=== PATIENT | female | born 1935 | race Caucasian/White ===

== ENCOUNTER 2020-05-07 07:04 | Emergency (ER) | payer MEDICARE ==
[~2020-05-07] VITALS: Ht 170.2 cm; Wt 73.5 kg
[~2020-05-07 07:04] MED LIST: CALCIUM 600 +1 EAC2 PO; CELEBREX100 MG PO; COQ-10100 MG PO; FISH OIL 1,0001 EAC2 PO; GLUCOSAMINE &1 EAC1 PO; HYDROCODON-ACE1 EA12 PO; HYDROXYZINE HCL25 MG PO; LEVOTHYROXINE75 MCG PO; LISINOPRIL10 MG PO; TEMAZEPAM15 MG PO; TIZANIDINE HCL4 M1 PO; TYLENOL EXTRA500 MG PO; VITAMIN C WIT1000 MG PO
--- NOTE | 2020-05-07 07:37 | Emergency Department Note ---
History of Present Illnes History of Present Illness Chief Complaint: General Medicine Complaints History of Present Illness This is a 85 year old female Chief Complaint Comment Patient in from home via EMS with complaints of numbness to her right arm and bilateral feet as well as weakness. Per EMS report, the patient called once at 0230 with the same complaint but refused to be transported to the hospital at that time. Historian: Testing Consultant/EMS Arrival Mode: [place] Telephone Switchboard Operator Required: Yes Onset (how long ago): hour(s) (6) Location: R hand Quality: numb Radiation: Reports non-radiation Severity: mild Onset quality: gradual Duration (how long): hour(s) (6) Timing of current episode: constant Progression: partially resolved Chronicity: new Context: Denies recent illness, Denies recent surgery Relieving factors: none Exacerbating factors: none Associated symptoms: Reports denies other symptoms Treatments prior to arrival: none Past Medical/Family History Physician Review I have reviewed the patient's past medical and family history. Any updates have been documented here. Past Medical History Recent Fever: No Clinical Suspicion of Infectio: No New/Unexplained Change in Ment: No Review of Systems Review of Systems Constitutional: Reports as per HPI EENTM: Reports no symptoms Cardiovascular: Reports no symptoms Respiratory: Reports no symptoms Gastrointestinal: Reports no symptoms Genitourinary: Reports no symptoms Musculoskeletal: Reports no symptoms Integumentary: Reports no symptoms Neurological: Reports as per HPI, Reports numbness (R hand, Bilateral feet), Reports other; Denies headache, Denies weakness Psychological: Reports no symptoms Endocrine: Reports no symptoms Hematological/Lymphatic: Reports no symptoms Physical Exam Related Data Allergies: Coded Allergies: No Known Allergies (Unverified , 06/24/11) Triage Vital Signs Vital Signs Date Time Temp Pulse Resp B/P (MAP) Pulse Ox O2 Delivery O2 Flow Rate FiO2 05/07/20 07:15 97.9 68 17 121/69 95 Room Air Vital signs reviewed: Yes Physical Exam CONSTITUTIONAL Constitutional: Present well-developed, Present well-nourished HENT HENT: Present normocephalic, Present atraumatic, Present oropharynx clear/moist, Present nose normal HENT L/R: Present left ext ear normal, Present right ext ear normal EYES Eyes: Reports PERRL, Reports conjunctivae normal NECK Neck: Present ROM normal PULMONARY Pulmonary: Present effort normal, Present breath sounds normal CARDIOVASCULAR Cardiovascular: Present regular rhythm, Present heart sounds normal, Present capillary refill normal, Present normal rate GASTROINTESTINAL Abdominal: Present soft, Present nontender, Present bowel sounds normal GENITOURINARY Genitourinary: Present exam deferred SKIN Skin: Present warm, Present dry MUSCULOSKELETAL Musculoskeletal: Present ROM normal NEUROLOGICAL Neurological: Present alert, Present oriented x 3, Present no gross motor or sensory deficits; Absent cranial nerve deficit, Absent sensory deficit, Absent abnormal coordination, Absent weakness PSYCHOLOGICAL Psychological: Present mood/affect normal, Present judgement normal Procedures 12 Lead ECG Interpretation ECG Interpretation : Telephone Switchboard Operator: Interpreted by ED physician Date: May 07, 2020 Rhythm: sinus rhythm Rate: normal BPM: 60 QRS axis: normal Conduction: right bundle branch block ST segments normal: Yes T waves normal: Yes Clinical Impression: non-specific ECG Assessment & Plan Medical Decision Making MDM 85-year-old female presents for right hand numbness and bilateral feet numbness. The symptoms are subjective and she retains feeling in all the extremities. No focal neurologic deficits. Cranial nerves II through XII are intact, vital signs stable, within except for limits. Initial differential includes stroke versus diabetic neuropathy versus paresthesias among others. Workup is largely unremarkable including CT head and labs. possible UTI on UA, will rx keflex. I offered admission for stroke rule out to witch patient declined. I discussed her that I cannot rule out a stroke without an MRI but she does not wish to stay in hospital for this. Given patient's improving symptoms she is appropriate for discharge. She was given aspirin and will follow up with a primary care doctor. Part of this note was dictated with Vini and is subject to recognition errors. Reassessment Reassessment time: 07:50 Reassessment Well appearing, NAD Assessment & Plan Final Impression: (1) Hand numbness (2) UTI (urinary tract infection) Depart Disposition: HOME, SELF-CARE Last Vital Signs Date Time Temp Pulse Resp B/P (MAP) Pulse Ox O2 Delivery O2 Flow Rate FiO2 05/07/20 07:15 97.9 68 17 121/69 95 Room Air Home Meds Active Scripts Cephalexin Monohydrate (KEFLEX) 500 Mg Capsule, 500 MG PO BID for 7 Days, #14 TAB 0 Refills Prov:MAGDIEL RANDHAWA MD 05/07/20 Reported Medications Acetaminophen (TYLENOL EXTRA STRENGTH) 500 Mg Tablet, 1000 MG PO BID 04/21/16 Ubidecarenone (COQ-10) 100 Mg Capsule, PO DAILY 04/21/16 Gluc 2KCL/Chondr/Mary Grace Hy/Hy Ac (GLUCOSAMINE & CHONDROITIN CAP) 1 Each Capsule, 1 TAB PO TID 04/20/16 Warren-3 Fatty Acids/Fish Oil (FISH OIL 1,000 MG CAPSULE) 1 Each Capsule, 1000 MG PO DAILY 04/20/16 Ascorbic Acid (VITAMIN C WITH ANDREW HIPS) 1,000 Mg Tablet, 1000 MG PO DAILY 04/20/16 Calcium Carbonate/Vitamin D3 (CALCIUM 600 + D3 SOFTGEL) 1 Each Capsule, 2 TAB PO BID 04/20/16 Hydroxyzine Hcl (HYDROXYZINE HCL) 25 Mg Tablet, 25 MG PO QID PRN for ITCHING, #30 TAB 04/20/16 Hydrocodone Bit/Acetaminophen (HYDROCODON-ACETAMINOPH 7.5-325) 1 Each Tablet, 1 TAB PO PRN PRN for PAIN 04/20/16 Temazepam (TEMAZEPAM) 15 Mg Capsule, 15 MG PO HS 04/20/16 Celecoxib* (CELEBREX*) 100 Mg Capsule, 200 MG PO BID, #30 CAP 04/20/16 Tizanidine Hcl (TIZANIDINE HCL) 4 Mg Capsule, 2 MG PO PRN PRN for MUSCLE SPASMS 04/20/16 Lisinopril (LISINOPRIL) 10 Mg Tablet, 20 MG PO DAILY, #30 TAB 04/20/16 Levothyroxine Sodium (LEVOTHYROXINE SODIUM) 75 Mcg Tablet, 175 MCG PO DAILY, #30 TAB 04/20/16 MAGDIEL RANDHAWA MD May 07, 2020 07:37
[2020-05-07 07:59] LABS: BASOPHILS # (AUTO) 0.1 (0.0-0.1); BASOPHILS % 0.8 % (0.0-1.0); EOSINOPHILS # (AUTO) 0.6 (0.0-0.4); HEMOGLOBIN 9.4 g/dL (12.0-16.0); LYMPHOCYTES # (AUTO) 3.5 (1.0-3.2); LYMPHOCYTES % 38.6 % (18.0-39.1); MEAN CORPUSCULAR HEMOGLOBIN 29.2 pg (28-32); MEAN CORPUSCULAR HGB CONC 31.3 g/dL (31-35); MEAN CORPUSCULAR VOLUME 93.2 fL (81-99); MONOCYTES # (AUTO) 0.6 (0.2-0.8); MONOCYTES % 6.8 % (4.4-11.3); NEUTROPHILS # (AUTO) 4.2 (2.1-6.9); NEUTROPHILS % 46.5 % (38.7-80.0); PLATELET COUNT 256 x10e3/uL (140-360); RED BLOOD COUNT 3.22 x10e6/uL (3.6-5.1); RED CELL DISTRIBUTION WIDTH 14.6 % (11.7-14.4)
[2020-05-07 08:10] LABS: INR 0.83; PROTHROMBIN TIME 11.8 seconds (11.9-14.5)
--- OUTSIDE RECORDS SUMMARY | 2020-05-07 08:10 | XMS REPORT | Clinical Summary ---
Author Author [facility] Address Unknown Phone Unavailable Care Team Providers Care Pre Parole Counseling Aide Name Role Phone Sunny Quintero DO PCP Allergies No Known Allergies Medications End Date Status Medication Sig Dispensed Refills Start Date Active levothyroxine (SYNTHROID, Take 100 mcg 0 LEVOXYL) 100 mcg tablet by mouth daily. Active lisinopril Take 20 mg by 0 (PRINIVIL,ZESTRIL) 20 mg mouth daily. tablet Active celecoxib (CeleBREX) 200 Take 200 mg 0 MG capsule by mouth 2 (two) times a day. Active tiZANidine (ZANAFLEX) 2 Take 2 mg by 0 MG tablet mouth every 8 (eight) hours as needed for muscle spasms. Active temazepam (RESTORIL) 30 Take 30 mg by 0 mg capsule mouth nightly as needed for sleep. Active hydrOXYzine (ATARAX) 10 Take 10 mg by 0 MG tablet mouth 3 (three) times a day as needed for itching. Active buhqwljznpk-rqkjhh-lyqb-c Take by 0 ollag [id number] mg mouth. tablet Active ubidecarenone (CO Q-10 Take by 0 ORAL) mouth. Active amLODIPine (NORVASC) 5 mg Take 10 mg by 0 tablet mouth daily. Active ascorbic acid, vitamin C, Take 500 mg 0 (ascorbic acid with lyndsey by mouth hips) 500 MG tablet daily. Active calcium carbonate-vitamin Take 1 tablet 0 D3 500 mg-200 unit per by mouth 2 tablet (two) times a day with meals. Active Problems No known active problems Family History Medical History Relation Name Comments Heart attack Father Relation Name Status Comments Father Social History Date Tobacco Use Types Packs/Day Years Used Never Smoker Smokeless Tobacco: Never Used Drinks/Week oz/Week Comments Alcohol Use No Alcohol Habits Answer Date Recorded How often do you have a drink containing alcohol? Never 11/17/2018 How many drinks containing alcohol do you have on No t asked a typical day when you are drinking? How often do you have six or more drinks on one Not asked occasion? Sex Assigned at Date Recorded Not on file Industry Job Start Date Occupation Not on file Not on file Not on file Travel End Travel History Travel Start No recent travel history available. Last Filed Vital Signs Not on file Plan of Treatment Health Maintenance Due Date Last Done Comments SHINGLES VACCINES (#1) 1986 65+ PNEUMOCOCCAL VACCINE 2001 (1 of 2 - PCV13) INFLUENZA VACCINE 04/22/2020 Implants Device Identifier Shelf Expiration Date Model / Serial / L ot Implanted Type Area Manufactur er 11/29/2018 PKP / [id number] ODCN / Tissue Corneal - [id number] Odcn - Ophthalmic Right: Eye [employer] [id number] Implants BANK Implanted: Qty: 1 on 11/21/2018 by Pepito Jones MD at [facility] Results Not on fileafter 05/07/2019 Insurance Type Payer Benefit Subscriber ID Effective Phone Address Plan / Dates Group HMO [employer] CIGNA xxxxxxxxxxx [id number] [employer] resent [place] HMO MCR ADV Advance Directives For more information, please contact: [phone] Patient Line Worker Explanation Type Date Recorded Advance Directives, Living Will and Medical Power of Commercial Real Estate Sales Manager
--- OUTSIDE RECORDS SUMMARY | 2020-05-07 08:11 | XMS REPORT | Continuity of Care Document ---
Author Author [facility] t Organization [facility] Address [address] [place] [address] Phone Unavailable Care Team Providers Care Treatment Coordinator Name Role Phone Sunny Quintero DO PCP Problems Condition Name Condition Details Condition Category Status Onset Date Resolution Date Last Treatment Date Treating Clinician Comments Source Memory impairment Memory Impairment Problem Active 2020-04-27 00:00:00 [facility] History of fall History of Fall Problem Active 2020-04-27 00:00:00 [facility] Elevated liver enzymes level Elevated Liver Enzymes Level Problem Active 2020-04-17 00:00:00 [facility] Hypothyroidism Hypothyroidism Problem Active 2019-10-17 00:00:00 [facility] Hyperlipidemia Hyperlipidemia Problem Active 2019-10-17 00:00:00 [facility] Persistent insomnia Persistent Insomnia Problem Active 2019-10-17 00:00 :00 [facility] Benign essential hypertension Benign Essential Hypertension Problem Active 2019-10-17 00:00:00 [facility] Osteoarthritis Osteoarthritis Problem Active 2019-10-17 00:00:00 [facility] Osteoporosis Osteoporosis Problem Active 2019-10-17 00:00:00 [facility] Heart murmur Heart Murmur Problem Active 2019-10-17 00:00:00 [facility] Diarrhea Diarrhea Problem Active 2019-10-17 00:00:00 [facility] Family history of premature coronary heart disease Fam liset History of Premature Coronary Heart Disease Problem Active 2019-10-17 00:00:00 [facility] History of malignant neoplasm of breast History of Malignant Neoplasm of Breast Problem Active 2019-10-08 00:00:00 [facility] Allergies, Adverse Reactions, Alerts This patient has no known allergies or adverse reactions. Family History Family Member Diagnosis Comments Start Date Stop Date Source Natural father Heart attack [place] [employer] Social History Social Habit Start Date Stop Date Quantity Comments Source History SDOH Alcohol Std Drinks Kyle Padron History SDOH Alcohol Binge Kyle Padron Sex Assigned At Ad small [employer] Alcohol intake 2018-11-22 00:00:00 2018-11-22 00:00:00 Current non-drinker of alcohol (finding) Kyle Padron History SDOH Alcohol Frequency 2018-11-17 00:00:00 2018-11-17 00:00:0 0 1 Kyle Padron Smoking Status Start Date Stop Date Source Former [place] [facility] Never smoker Kyle العراقي t Medications Ordered Medication Name Filled Medication Name Start Date Stop Da te Current Medication? Ordering Clinician Indication Dosage Frequency Signature (SIG) Comments Components Source levothyroxine (SYNTHROID, LEVOXYL) 100 mcg tablet 2018-11-21 16:28:32 Yes 100ug QD Take 100 mcg by mouth daily. Kyle Padron lisinopril (PRINIVIL,ZESTRIL) 20 mg tablet 2018-11-21 16:28:32 Yes 20mg QD Take 20 mg by mouth daily. Navjot Padron celecoxib (CeleBREX) 200 MG capsule 2018-11-21 16:28:32 Yes 200mg Q.5D Take 200 mg by mouth 2 (two) times a day. Kyle Padron tiZANidine (ZANAFLEX) 2 MG tablet 2018-11-21 16:28:32 Yes 2mg Q8H Take 2 mg by mouth every 8 (eight) hours as needed for muscle spasms. Kyle Padron temazepam (RESTORIL) 30 mg capsule 2018-11-21 16:28:32 Yes 30mg QD Take 30 mg by mouth nightly as needed for sleep. Kyle Padron hydrOXYzine (ATARAX) 10 MG tablet 2018-11-21 16:28:32 Ye s 10mg [id number] Take 10 mg by mouth 3 (three) times a da y as needed for itching. Kyle Padron rihqcqwauyy-ligjwh-ahgu-collag [id number] mg tablet 2018-11-21 16:28:32 Yes Take by mouth. Kyle Frye ethodist ubidecarenone (CO Q-10 ORAL) 2018-11-21 16:28:32 Yes Take by mouth. Kyle Padron amLODIPine (NORVASC) 5 mg tablet 2018-11-21 16:28:32 Yes 10mg QD Take 10 mg by mouth daily. Kyle Padron ascorbic acid, vitamin C, (ascorbic acid with lyndsey hips) 500 MG tablet 2018-11-21 16:28:32 Yes 500mg QD Take 500 mg by kira th daily. Kyle Padron calcium carbonate-vitamin D3 500 mg-200 unit per tablet 2018-11-21 16:28:32 Yes 1{tbl} Q.5D Take 1 tablet by mouth 2 (two) times a d ay with meals. Kyle Padron amlodipine 10 mg tablet Take 1 tablet every day by ora l route for 90 days. amlodipine 10 mg tablet Take 1 tablet every day by oral route for 90 days. No amlodipine 10 m g tablet Take 1 tablet every day by oral route for 90 days. [facility] br[facility] 0.2 % eye drops use daily as directed brim onidine 0.2 % eye drops use daily as directed No br imonidine 0.2 % eye drops use daily as directed [facility] Calcium 600 4 a day Calcium 600 4 a day No Calcium 600 4 a day [facility] celecoxib 200 mg capsule TAKE 1 CAPSULE BY MOUTH TWICE DAILY celecoxib 200 mg capsule TAKE 1 CAPSULE BY MOUTH TWICE DAILY No celecoxib 200 mg capsule TAKE 1 CAPSULE BY MOUTH TWICE DAILY [facility] Co Q-10 1 po qd Co Q-10 1 po qd No Co Q-10 1 po qd [facility] Fish Oil 1200mg daily Fish Oil 1200mg daily No Fish Oil 1200mg daily [facility] hydroxyzine HCl 25 mg tablet Take 1 tablet twice a day by oral route as needed. hydroxyzine HCl 25 mg tablet Take 1 tablet twice a day by oral route as needed. No 1 BID hydroxyzin e HCl 25 mg tablet Take 1 tablet twice a day by oral route as needed. [facility] lisinopril 20 mg tablet Take 1 tablet every day by ora l route for 90 days. lisinopril 20 mg tablet Take 1 tablet every day by oral route for 90 days. No lisinopril 20 m g tablet Take 1 tablet every day by oral route for 90 days. [facility] prednisolone acetate 1 % eye drops,suspension uad pred nisolone acetate 1 % eye drops,suspension uad No pre dnisolone acetate 1 % eye drops,suspension uad [facility] xiang rosuvastatin 5 mg tablet Take 1 tablet every day by or al route. rosuvastatin 5 mg tablet Take 1 tablet every day by oral route. No rosuvastatin 5 mg tablet Take 1 tablet every day by oral route. [facility] temazepam 30 mg capsule TAKE 1 CAPSULE BY MOUTH EVERY DAY AT BEDTIME temazepam 30 mg capsule TAKE 1 CAPSULE BY MOUTH EVERY DAY AT BEDTIME No temazepam 30 mg capsule TAKE 1 CAPSULE BY MOUTH EVERY DAY AT BEDTIME [facility] tizanidine 2 mg capsule Take 1 capsule every day by or al route as needed. tizanidine 2 mg capsule Take 1 capsule every day by oral route as needed. No 1capsule(s) Q1D tizanidine 2 mg capsule Take 1 capsule every day by oral route as needed. [facility] ice Vitamin C 1000mg daily Vitamin C 1000mg daily No Vitamin C 1000mg daily [facility] Vitamin D3 4 a day Vitamin D3 4 a day No Vi tamin D3 4 a day [facility] Immunizations Ordered Immunization Name Filled Immunization Name Date Status Comments Source influenza, high-dose, quadrivalent influenza, high-dose, deidre drivalent 2020-04-25 15:46:15 Completed [facility] Vital Signs Vital Name Observation Time Observation Value Comments Source BP Diastolic 2020-04-25 00:00:00 61 mm[Hg] [facility] Height 2020-04-25 00:00:00 65 [in_i] [facility] BMI (Body Mass Index) 2020-04-25 00:00:00 27 kg/m2 [facility] BP Systolic 2020-04-25 00:00:00 108 mm[Hg] [facility] Body Weight 2020-04-25 00:00:00 162 [lb_av] [facility] BP Diastolic 2020-01-24 00:00:00 67 mm[Hg] [facility] Height 2020-01-24 00:00:00 65 [in_i] [facility] BMI (Body Mass Index) 2020-01-24 00:00:00 29.6 kg/m2 [facility] BP Systolic 2020-01-24 00:00:00 106 mm[Hg] [facility] Body Weight 2020-01-24 00:00:00 178 [lb_av] [facility] BP Diastolic 2019-10-24 00:00:00 73 mm[Hg] [facility] BP Systolic 2019-10-24 00:00:00 132 mm[Hg] [facility] BP Diastolic 2019-10-08 00:00:00 77 mm[Hg] [facility] BP Systolic 2019-10-08 00:00:00 126 mm[Hg] [facility] Procedures Procedure Date / Time Performed Performing Clinician [facility] e Carpal Tunnel Surgery 2020-03-12 00:00:00 Sari e [facility] Corneal Transplant 2019-12-21 00:00:00 [facility] Felicia lyman Practice Corneal Transplant 2019-11-21 00:00:00 [facility] Practice Repair of Rectocele 1989-08-22 00:00:00 [facility] Mastectomy of Right Breast 1989-08-22 00:00:00 [facility] Total Abdominal Hysterectomy 1984-08-22 00:00:00 [facility] Cholecystectomy 1960-08-22 00:00:00 [facility] Candice loya Practice Appendectomy 1950-08-22 00:00:00 [facility] Derrick ly Practice Tonsillectomy 1940-08-22 00:00:00 [facility] Derricktheodore ly Practice Arthroscopic Procedure [facility] Total Knee Replacement [facility] Procedure on Cornea [facility] ly [facility] Plan of Care Planned Activity Planned Date Details Comments Source Diagnostic Test Pending 2020-04-25 00:00:00 CMP, serum or pl asma [code = CMP, serum or plasma] [facility] Diagnostic Test Pending 2020-04-25 00:00:00 TSH, serum or pl asma [code = TSH, serum or plasma] [facility] Diagnostic Test Pending 2020-04-25 00:00:00 lipid panel, ser um [code = lipid panel, serum] [facility] Diagnostic Test Pending 2020-04-25 00:00:00 vitamin B12 + fo late, serum or blood [code = vitamin B12 + folate, serum or blood] [facility] Future Scheduled Test 2020-04-22 00:00:00 INFLUENZA VACCINE [code = INFLUENZA VACCINE] [facility] Scheduled Test 2001 00:00:00 65+ PNEUMOCOCCAL V ACCINE (1 of 2 - PCV13) [code = 65+ PNEUMOCOCCAL VACCINE (1 of 2 - PCV13)] [facility] Scheduled Test 1986 00:00:00 SHINGLES VACCINES (#1) [code = SHINGLES VACCINES (#1)] [facility] Appointment 2020-07-25 00:00:00 Ees Conner, [address]; [address], [place] [address] [facility] xiang Instructions [facility] Encounters Start Date/Time End Date/Time Encounter Type Admission Type [facility] Facility Care Department Encounter ID Source 2020-04-25 00:00:00 2020-04-25 00:00:00 Ese Conner MD: [address], [address], [place] [address], Ph. [facility] ([facility]) [id number] [facility] 2020-02-23 00:00:00 2020-02-23 00:00:00 Booker coe MD: [id number], [address] [address], Ph. [facility] - [facility] [id number] [facility] 2020-01-24 00:00:00 2020-01-24 00:00:00 Kandi Payne MD: [address], [address], [place] [address], Ph. [facility] ([facility]) [id number] [facility] e 2019-12-10 00:00:00 2019-12-10 00:00:00 Alirio Staton MD: [address], [address], [place] [address], Ph. [facility] ([facility]) [id number] [facility] 2019-10-24 00:00:00 2019-10-24 00:00:00 Alirio Staton MD: [address] [place] [address], Ph. [facility] - [facility] [id number] [facility] 2019-10-08 00:00:00 2019-10-08 00:00:00 Ese Conner MD: [address] [place] [address], Ph. P [place] - [facility] [id number] [facility] Results Test Description Test Time Test Comments Results Result Comments Source Thyrotropin [Units/volume] in Serum or Plasma 2019-10-09 15: 50:00 Test Item TSH (test code = TSH) 54.186 uIU/mL 0.350-4.940 H [facility] - Serum or Plasma 2019-10-09 15:06:00* Test Item Value Reference Range Interpretation Comments ALT (test code = ALT) 59 U/L 0-55 H AST (test code = AST) 53 U/L 5-34 H BUN (test code = BUN) 19.7 mg/dL 9.8-25.0 alk phos (test code = alk phos) 57 unit/L 40-150 glucose (test code = glucose) 89 mg/dL 70-99 albumin (test code = albumin) 4.3 g/dL 3.4-5.1 creatinine (test code = creatinine) 0.94 mg/dL 0.57-1.11 eGFR non- (test code = eGFR non-zakiya n omani) 57 mL/min/1.73m2 A total bilirubin (test code = total bilirubin) 0.6 mg/dL 0.2-1.2 eGFR - (test code = eGFR - ) >60 sodium (test code = sodium) 140 mEq/L 135-145 potassium (test code = potassium) 4.2 mEq/L 3.5-5.3 chloride (test code = chloride) 103 mmol/L 98-110 total protein (test code = total protein) 7.7 g/dL 6.1-8.2 calcium (test code = calcium) 10.1 mg/dL 8.6-10.4 CO2 (test code = CO2) 29.1 mmol/L 20.0-32.0 anion gap (test code = anion gap) 8 calc [facility] - Serum or [id number] 15:06:00* Test Item Value Reference Range Interpretation Comments HDL (test code = HDL) 67 mg/dL triglyceride (test code = triglyceride) 171 mg/dL <150 H VLDL (calculated) (test code = VLDL (calculated)) 34 mg/dL cholesterol/HDL ratio (test code = cholesterol/HDL ratio) 5.1 mg/dL non-HDL cholesterol (calculated) (test code = non-HDL cholesterol (calculated)) 275 mg/dL <160 H cholesterol (test code = cholesterol) 342 mg/dL <200 H Cholesterol in LDL [Mass/volume] in Serum or Plasma (t est code = 2089-1) 241 mg/dL <130 H [facility] W Auto Differential panel - [id number] 14:54:00 * Test Item Value Reference Range Interpretation Comments WBC (test code = WBC) 8.72 x10*3/?L 3.98-10.04 RBC (test code = RBC) 4.78 10*12/L 3.93-5.22 hemoglobin (test code = hemoglobin) 13.70 g/dL 11.20-15.70 hematocrit (test code = hematocrit) 43.0 % 34.1-44.9 MCV (test code = MCV) 90.0 fL 80.0-100.0 MCH (test code = MCH) 28.7 pg 25.6-32.2 MCHC (test code = MCHC) 31.9 g/dL 32.2-35.5 L RDW-SD (test code = RDW-SD) 45.2 fL 36.4-46.3 platelet count (test code = platelet count) 258.0 k/uL 182.0-369. 0 MPV (test code = MPV) 12.5 fL 7.5-11.5 H neut% (test code = neut%) 45.6 % 34.0-71.1 lymph% (test code = lymph%) 42.2 % 19.3-51.7 mon% (test code = mon%) 5.7 % 4.7-12.5 eos% (test code = eos%) 5.7 % 0.7-5.8 baso% (test code = baso%) 0.8 % 0.1-1.2 neut# (test code = neut#) 4.0 x10*3/?L 1.6-6.1 lymph# (test code = lymph#) 3.7 x10*3/?L 1.2-3.7 mon# (test code = mon#) 0.5 x10*3/?L 0.2-0.9 eos# (test code = eos#) 0.50 x10*3/?L 0.04-0.36 H baso# (test code = baso#) 0.07 x10*3/?L 0.01-0.08 [facility] MAMM BILATERAL CHUCK CAD [id number] 12:37:26 - SCR MAMM BILATERAL CHUCK CAD DIGITALBILATERAL DIGITAL SCREENING MAMMOGRAM 3D/2D WITH CAD: 08/18/2018CLINICAL: Asymptomatic. Digital breast tomosynthesis was performed in addition to routine CC and MLO views. Current mammographic images were evaluated by either a [employer] M-Vu or a [employer] ImageChecker CAD (computer a ided detection system). Comparison is made to exams dated 07/27/2017 mammogram, 06/07/2016 mammogram, and 06/03/2015 mammogram - [facility]-. T here are scattered fibroglandular tissues in both breasts. There are benign vas cular calcifications and calcifications in both breasts. There are also post op erative findings in the right breast status post lumpectomy. Status post excisi onal biopsy in the left breast. No suspicious mass, architectural distortion, m alignant type calcification, or lymph node abnormality detected. Breast archite cture is stable compared to prior exams.IMPRESSION: BENIGNThere is no mammograph ic evidence of malignancy. Resume annual screening mammography in one year. Stuart Naranjo M.D. ss/:08/18/2018 12:37:26 Attending Technologist: Ashley ZHU, [facility]-Imaging Technologist: Jaja ZHU RT(M), [facility]-letter sent: BIRADS 1-2 Normal Mammogra m BI-RADS: 2 Benign
[2020-05-07 08:17] LABS: ALBUMIN 4.6 g/dL (3.5-5.0); ALBUMIN/GLOBULIN RATIO 1.5 (0.8-2.0); ANION GAP 15.2 mmol/L (8-16); CALCIUM 9.4 mg/dL (8.4-10.2); CREATININE, SERUM 1.07 mg/dL (0.57-1.11); POTASSIUM 4.2 mmol/L (3.5-5.1)
[2020-05-07 08:19] LABS: CLARITY,URINE CLEAR (CLEAR); COLOR,URINE YELLOW (YELLOW)
[2020-05-07 08:20] LABS: BILIRUBIN,URINE NEGATIVE (NEGATIVE); KETONES,URINE NEGATIVE (NEGATIVE); LEUKOCYTE ESTERASE ,URINE NEGATIVE (NEGATIVE); NITRITE,URINE NEGATIVE (NEGATIVE); PROTEIN,URINE DIPSTICK NEGATIVE (NEGATIVE); URINE UROBILINOGEN 0.2 mg/dL (0.2 - 1)
--- NOTE | 2020-05-07 08:30 | Diagnostic Imaging Report ---
EXAMINATION: Head CT HISTORY: 85 year old female with right upper extremity/hand numbness and bilateral feet numbness and weakness COMPARISON: None available TECHNIQUE: Helical axial images of the head were obtained. Dose modulation, iterative reconstruction, and/or weight based adjustment of the mA/kV was utilized to reduce the radiation dose to as low as reasonably achievable. FINDINGS: Parenchyma: 1. Few scattered and moderate confluent periventricular white matter hypodensities, which are nonspecific but most likely correspond to chronic microvascular ischemic changes. 2. No mass or hemorrhage. No CT evidence of acute territorial vascular insult. Extra-axial spaces:No abnormal density. No extra-axial fluid collections Brain volume: Normal for age. Ventricles: No hydrocephalus or displacement. Arteries: No density suggestive of thrombus. Dural sinuses: No abnormal density. Foramen magnum: No mass, Chiari malformation, or basilar invagination. Sella: No obvious mass. Paranasal/mastoid sinuses: Imaged portions unremarkable. Skull/Scalp: No lytic or blastic lesions. No fractures. 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 IMPRESSION: 1. No acute intracranial hemorrhage or CT evidence of acute cortical infarcts. 2. Moderate chronic microvascular ischemic changes. Signed by: Dr. Charmaine Ng M.D. on 05/07/2020 8:27 AM
[2020-05-07 08:31] LABS: BACTERIA,URINE MANY /HPF; EPITHELIAL CELLS,URINE MODERATE /LPF; RBC,URINE 0-5 /HPF (0-5)
[2020-05-07 08:32] LABS: MUCUS,URINE FEW (RARE)
[2020-05-07] MEDS ORDERED: KEFLEX500 MG PO (08:38)
[2020-05-07] MEDS ORDERED: ASPIRIN 325 MG TAB PO ONE (08:45)
[2020-05-07 09:20] VITALS: BP 121/69
== END 2020-05-07 09:22 | disposition home or self-care (01) ==
LOC: ER 07:30
DX: R20.0 Anesthesia of skin (principal); N39.0 Urinary tract infection, site not specified
CPT/HCPCS: 36415; 70450; 80053; 81001; 84443; 84484; 85025; 85610; 93005; 99284